=== PATIENT | female | born 1975 | race Caucasian/White ===

== ENCOUNTER 2017-07-22 19:56 | Emergency (ER) | payer OTHER ==
[2017-07-22] MEDS: MECLIZINE 12.5 MG TAB PO (23:33)
[2017-07-22] MEDS: ONDANSETRON (ODT) 4 MG TAB ODT (23:33)
== END 2017-07-23 00:01 | disposition home or self-care (01) ==
LOC: FTE 07-23 00:01
DX: R42 Dizziness and giddiness (principal); I10 Essential (primary) hypertension
CPT/HCPCS: 81025; 99283

== ENCOUNTER 2018-06-26 07:41 | Emergency (ER) | payer OTHER | END 2018-06-26 08:40 | disposition home or self-care (01) | LOC: FTE 07:41 | DX: H72.91 Unspecified perforation of tympanic membrane, right ear (principal); J40 Bronchitis, not specified as acute or chronic; I10 Essential (primary) hypertension | CPT/HCPCS: 99283-25; Z7502 ==

== ENCOUNTER 2018-07-07 17:59 | Emergency (ER) | payer OTHER ==
[2018-07-07 21:36] LABS: ADD MAN DIFF? NO
[2018-07-07] MEDS: KETOROLAC 15 MG INJ IV (21:37)
[2018-07-07 21:41] LABS: WHITE BLOOD COUNT 8.2 10^3/ul (4.8-10.8)
[2018-07-07 21:41] LABS: BASOPHIL # 0.1 10^3/ul (0.0-0.1); BASOPHILS % 0.7 % (0.0-2.0); EOSINOPHILS # 0.2 10^3/ul (0.0-0.5); EOSINOPHILS % 2.2 % (0.0-7.0); HEMATOCRIT 39.9 % (37.0-47.0); HEMOGLOBIN 12.3 g/dl (12.0-16.0); LYMPHOCYTES % 24.4 % (15.0-51.0); MEAN CORPUSCULAR HEMOGLOBIN 24.7 pg (29.0-33.0); MEAN CORPUSCULAR HGB CONC 30.8 g/dl (32.0-37.0); MEAN CORPUSCULAR VOLUME 80.1 fl (82.0-101.0); MEAN PLATELET VOLUME 10.4 fl (7.4-10.4); MONOCYTE # 0.5 10^3/ul (0.3-0.9); MONOCYTES % 5.7 % (0.0-11.0); NEUTROPHIL # 5.4 10^3/ul (1.6-7.5); NEUTROPHILS % 66.1 % (39.0-77.0); PLATELET COUNT 315 10^3/UL (140-415); RED BLOOD COUNT 4.98 10^6/ul (4.20-5.40); RED CELL DISTRIBUTION WIDTH 14.4 % (11.5-14.5)
[2018-07-07 21:59] LABS: ANION GAP 12 (5-13); BLOOD UREA NITROGEN 13 mg/dl (7-20); CALCIUM 9.7 mg/dl (8.4-10.2); CARBON DIOXIDE 26 mmol/L (21-31); CHLORIDE 100 mmol/L (97-110); CREATININE 0.62 mg/dl (0.44-1.00); Estimated GFR > 60 mL/min (>60); GLUCOSE 143 mg/dl (70-220); POTASSIUM 3.7 mmol/L (3.5-5.1); SODIUM 138 mmol/L (135-144)
[2018-07-07 22:04] LABS: D-DIMER 350.22 ng/ml (<460)
[2018-07-07 22:10] LABS: TROPONIN-I < 0.012 ng/ml (0.000-0.120)
[2018-07-07] MEDS ORDERED: OSELTAMIVIR 75 MG CAP PO (23:30)
== END 2018-07-08 01:12 | disposition home or self-care (01) ==
LOC: E/R 07-08 01:12
DX: I10 Essential (primary) hypertension (principal)
CPT/HCPCS: 36415; 71045; 80048; 84484; 85025; 85378; 96374; 99284-25

== ENCOUNTER 2018-10-03 13:31 | Emergency (ER) | payer OTHER ==
[2018-10-03] MEDS: KETOROLAC 60 MG INJ IM (15:27)
== END 2018-10-03 15:46 | disposition home or self-care (01) ==
LOC: FTE 15:46
DX: M54.9 Dorsalgia, unspecified (principal); I10 Essential (primary) hypertension
CPT/HCPCS: 81025; 96372; 99284-25

== ENCOUNTER 2019-01-09 19:06 | Emergency (ER) | payer OTHER ==
[2019-01-09] MEDS: IBUPROFEN 600 MG TAB PO (20:33)
== END 2019-01-09 21:09 | disposition home or self-care (01) ==
LOC: FTE 19:06
DX: S92.902A Unspecified fracture of left foot, initial encounter for closed fracture (principal); I10 Essential (primary) hypertension; W01.0XXA Fall on same level from slipping, tripping and stumbling without subsequent striking against object, initial encounter; Y92.9 Unspecified place or not applicable
CPT/HCPCS: 73630; 73630-LT; 99283-25